=== PATIENT | female | born 1955 | race Caucasian/White ===

== ENCOUNTER 2018-06-08 11:36 | Emergency (ER) | payer OTHER ==
[~2018-06-08] VITALS: Ht 165.1 cm; Wt 65.8 kg
[2018-06-08] MEDS ORDERED: EFFEXOR XR75 MG PO (11:54)
[2018-06-08 13:22] VITALS: BP 115/69
== END 2018-06-08 13:23 | disposition home or self-care (01) ==
LOC: M.ERS 11:36
DX: S52.514A Nondisplaced fracture of right radial styloid process, initial encounter for closed fracture (principal); S01.01XA Laceration without foreign body of scalp, initial encounter; Z85.3 Personal history of malignant neoplasm of breast; Z90.710 Acquired absence of both cervix and uterus; Z90.13 Acquired absence of bilateral breasts and nipples; Z88.0 Allergy status to penicillin; Z88.8 Allergy status to other drugs, medicaments and biological substances; W00.0XXA Fall on same level due to ice and snow, initial encounter; Y93.89 Activity, other specified; Y92.89 Other specified places as the place of occurrence of the external cause; Y99.8 Other external cause status